=== PATIENT | male | born 1955 | race Caucasian/White ===

== ENCOUNTER 2024-01-23 21:09 | Observation (INO) | payer MEDICARE ==
[~2024-01-23] VITALS: Ht 177.8 cm; Wt 70.4 kg
[2024-01-23 21:53] LABS: BASOPHILS # (AUTO) 0.06 K/uL (0.00-0.20); BASOPHILS % (AUTO) 0.6 % (0.0-5.0); EOSINOPHILS # (AUTO) 0.36 K/uL (0.00-0.70); EOSINOPHILS % (AUTO) 3.8 % (0.0-8.0); HEMATOCRIT 30.8 % (42-54); IMMATURE GRANULOCYTE ABSOLUTE 0.03 K/uL (0-1); LYMPHOCYTES # (AUTO) 2.6 K/uL (1.0-4.8); MEAN CORPUSCULAR HEMOGLOBIN 24.9 pg (27.0-33.0); MEAN CORPUSCULAR HGB CONC 31.8 g/dL (32.0-36.0); MEAN CORPUSCULAR VOLUME 78.4 fL (79-99); MONOCYTES # (AUTO) 0.6 K/uL (0.1-1.0); MONOCYTES % (AUTO) 5.7 % (3.0-13.0); NEUTROPHILS % (AUTO) 62.6 % (40.0-77.0); PLATELET COUNT (AUTO) 353 K/uL (130-400); RED BLOOD CELL COUNT(AUTO) 3.93 MIL/uL (4.50-6.20); RED CELL DISTRIBUTION WIDTH 16.6 % (11.0-15.5); WHITE BLOOD COUNT (AUTO) 9.6 K/uL (4.8-10.8)
[2024-01-23] MEDS ORDERED: ZINC220C6 PO (22:01)
[2024-01-23] MEDS ORDERED: LACT10SO5 PO (22:01)
[2024-01-23] MEDS ORDERED: POLY17PO4 PO (22:01)
[2024-01-23] MEDS ORDERED: INSU100V12 SQ (22:01)
[2024-01-23] MEDS ORDERED: PANT40TA54 PO (22:01)
[2024-01-23] MEDS ORDERED: ACET325T51 PO (22:01)
[2024-01-23] MEDS ORDERED: ASCO500T10 PO (22:01)
[2024-01-23] MEDS ORDERED: LEVE250T PO (22:01)
[2024-01-23] MEDS ORDERED: CALC-916 PO (22:01)
[2024-01-23] MEDS ORDERED: ICOS1CAP PO (22:01)
[2024-01-23] MEDS ORDERED: FENO160T16 PO (22:01)
[2024-01-23] MEDS ORDERED: GABA300C PO (22:01)
[2024-01-23] MEDS ORDERED: FOLI1 PO (22:01)
[2024-01-23 22:02] LABS: CREATININE 0.8 mg/dL (0.5-1.3); POTASSIUM 3.8 mmol/L (3.5-5.1)
[2024-01-23 22:34] LABS: PLATELET MORPHOLOGY LARGE PLTS PRESENT
[2024-01-23] MEDS: 0.9%NACL 1000ML 1,000 ML IV SCH (23:52)
[2024-01-23] MEDS: KETOROLAC 15MG/ML VIAL (15MG/ML) IV PRN (23:52)
[2024-01-23] MEDS: DiphenhydrAMINE HCL 50 MG/ML VIAL IV PRN (23:55)
[2024-01-24] VITALS (22 sets, daily range): BP systolic 100–136; BP diastolic 67–87; PULSE 64–94; RESP 14–19; O2SAT 97
[2024-01-24] MEDS ORDERED: MAG/ALUM/SIMETH 30 ML UDCUP PO PRN
[2024-01-24] MEDS ORDERED: POTASSIUM CHLORIDE 10MEQ/100ML 100 ML IV PRN
[2024-01-24] MEDS ORDERED: POTASSIUM CHLORIDE 10% ELIXIR 20 MEQ/15 ML UDCUP PO PRN
[2024-01-24] MEDS ORDERED: LACTULOSE 20 GM/30 ML UDCUP PO PRN
[2024-01-24] MEDS ORDERED: ONDANSETRON 4MG INJ IV PRN
[2024-01-24] MEDS ORDERED: DEXTROSE 50%-WATER 50 ML DISP.SYRIN IV PRN
[2024-01-24] MEDS ORDERED: NITROGLYCERIN 0.4 MG SL TAB SL PRN
[2024-01-24] MEDS ORDERED: KCL 20 MEQ ERTAB PO PRN
[2024-01-24] MEDS ORDERED: GUAIFENESIN-DM 200/20 MG 10 ML PO PRN
[2024-01-24] MEDS ORDERED: GLUCAGON 1MG KIT 1 MG ML IM PRN
[2024-01-24] MEDS ORDERED: ZOLPIDEM TARTRATE 5 MG TAB PO PRN
[2024-01-24] MEDS ORDERED: HYDRALAZINE 20MG/ML VIAL IV PRN
[2024-01-24] MEDS ORDERED: FAMOTIDINE 20MG VIAL IV PRN
[2024-01-24] MEDS ORDERED: MAGNESIUM 2GM PREMIX 50ML 50 ML IV PRN
[2024-01-24] MEDS ORDERED: NON-FORMULARY MEDICATION 1 EACH (Lactulose 20 GM) PO PRN (02:30)
[2024-01-24] MEDS ORDERED: ACETAMINOPHEN 325 MG TAB PO PRN ×4 (02:30)
[2024-01-24] MEDS ORDERED: POTASSIUM CHLORIDE 10MEQ SR TAB PO PRN (06:30)
[2024-01-24] MEDS: INSULIN HUMULIN R 100 UNIT/ML 3ML SQ SCH (06:38)
[2024-01-24 06:53] LABS: BASOPHILS # (AUTO) 0.05 K/uL (0.00-0.20); BASOPHILS % (AUTO) 0.5 % (0.0-5.0); EOSINOPHILS # (AUTO) 0.46 K/uL (0.00-0.70); EOSINOPHILS % (AUTO) 4.7 % (0.0-8.0); HEMATOCRIT 30.9 % (42-54); IMMATURE GRANULOCYTE ABSOLUTE 0.04 K/uL (0-1); LYMPHOCYTES # (AUTO) 2.3 K/uL (1.0-4.8); LYMPHOCYTES % (AUTO) 23.7 % (21.0-51.0); MEAN CORPUSCULAR HEMOGLOBIN 25.4 pg (27.0-33.0); MEAN CORPUSCULAR VOLUME 79.4 fL (79-99); MONOCYTES # (AUTO) 0.5 K/uL (0.1-1.0); MONOCYTES % (AUTO) 5.6 % (3.0-13.0); NEUTROPHILS # (AUTO) 6.3 K/uL (1.8-7.7); NEUTROPHILS % (AUTO) 65.1 % (40.0-77.0); PLATELET COUNT (AUTO) 342 K/uL (130-400); RED BLOOD CELL COUNT(AUTO) 3.89 MIL/uL (4.50-6.20); RED CELL DISTRIBUTION WIDTH 16.7 % (11.0-15.5); WHITE BLOOD COUNT (AUTO) 9.7 K/uL (4.8-10.8)
[2024-01-24 07:04] LABS: HEMOGLOBIN A1C 9.9 % (4.0-6.0)
[2024-01-24 07:28] LABS: BILIRUBIN,DIRECT 0.2 mg/dL (0.0-0.3); BILIRUBIN,TOTAL 0.7 mg/dL (0.2-1.0); CREATININE 0.8 mg/dL (0.5-1.3); MAGNESIUM 1.9 mg/dL (1.80-2.40); POTASSIUM 3.7 mmol/L (3.5-5.1); TOTAL PROTEIN, SERUM 7.8 g/dL (6.0-8.3)
[2024-01-24] MEDS: FOLIC ACID 1 MG TABLET PO SCH (09:00)
[2024-01-24] MEDS: HEPARIN 5,000 UNIT VIAL SQ SCH (09:00)
[2024-01-24] MEDS: PANTOPRAZOLE 40 MG TAB DR PO SCH (09:00)
[2024-01-24] MEDS: GABAPENTIN 300 MG CAPSULE PO SCH (09:00)
[2024-01-24] MEDS: ASCORBIC ACID 500 MG TAB PO SCH (09:00)
[2024-01-24] MEDS ORDERED: FAMOTIDINE 20MG VIAL IV SCH (09:00)
[2024-01-24] MEDS: (Icosapent Ethyl (Vascepa) 1 GM) PO SCH (09:00)
[2024-01-24] MEDS: (Fenofibrate 160 MG) PO SCH (09:00)
[2024-01-24] MEDS: LEVETIRACETAM 250 MG TABLET PO SCH (09:00)
[2024-01-24] MEDS: ZINC SULFATE 220 CAPSULE PO SCH (09:00)
[2024-01-24] MEDS: INSULIN GLARGINE 100 UNITS/ML 10 ML VIAL SQ SCH (09:00)
[2024-01-24] MEDS: CALCIUM CARBONATE 600 MG PO SCH (09:00)
[2024-01-24] MEDS: POLYETHYLENE GLYCOL 3350 17 GM POWD.PACK PO SCH (09:00)
[2024-01-24 09:28] LABS: INR 1.04 (0.85-1.15); PROTHROMBIN TIME 11.2 SEC (9.6-11.6)
[2024-01-24] MEDS ORDERED: NEOSTIGMINE METHYLSULFATE 1MG/ML IV ONE (09:48)
[2024-01-24] MEDS ORDERED: LIDOCAINE PF 100MG/5ML (2%) SYRINGE 5ML ONE (09:48)
[2024-01-24] MEDS ORDERED: SUCCINYLCHOLINE CHLORIDE 20 MG/ML 10 ML VIAL ONE (09:48)
[2024-01-24] MEDS ORDERED: GLYCOPYRROLATE 0.2 MG/ML 5 ML VIAL ONE (09:48)
[2024-01-24] MEDS ORDERED: PROPOFOL 10 MG/ML 20ML VIAL IV ONE (09:48)
[2024-01-24] MEDS ORDERED: DEXAMETHASONE SOD PHOSPHATE 10MG/ML 1ML VIAL ONE (09:48)
[2024-01-24] MEDS ORDERED: ONDANSETRON 4MG INJ ONE (09:48)
[2024-01-24] MEDS ORDERED: MIDAZOLAM HCL 1 MG/ML 2ML VIAL ONE (09:48)
[2024-01-24] MEDS ORDERED: ROCURONIUM BROMIDE 10MG/1ML 5ML VL ONE (09:49)
[2024-01-24] MEDS ORDERED: FENTANYL CITRATE PF 50 MCG/1 ML 2ML VIAL ONE (09:49)
[2024-01-24] MEDS ORDERED: KETAMINE 50MG/ML SYRINGE 50 MG/ML DISP.SYRIN ONE (11:11)
[2024-01-24] MEDS: ZOSYN 3.375GM +NS 50ML IVPB ONE (11:40)
[2024-01-24] MEDS: ZOSYN 3.375GM+NS 50ML 50 ML ONE (13:02)
== END 2024-01-24 18:00 ==
LOC: EDH 21:09 → EDHIP 23:35 → 3CH 01-24 00:59
PROVIDERS: ADMIT Hospitalist; ATTEND Hospitalist
DX: T83.020A Displacement of cystostomy catheter, initial encounter (principal); E11.649 Type 2 diabetes mellitus with hypoglycemia without coma; E11.40 Type 2 diabetes mellitus with diabetic neuropathy, unspecified; K70.30 Alcoholic cirrhosis of liver without ascites; M81.0 Age-related osteoporosis without current pathological fracture; K21.9 Gastro-esophageal reflux disease without esophagitis; N35.912 Unspecified bulbous urethral stricture, male; N13.30 Unspecified hydronephrosis; N31.9 Neuromuscular dysfunction of bladder, unspecified; E78.00 Pure hypercholesterolemia, unspecified; F41.9 Anxiety disorder, unspecified; E66.01 Morbid (severe) obesity due to excess calories; K56.600 Partial intestinal obstruction, unspecified as to cause; D64.9 Anemia, unspecified; N21.0 Calculus in bladder; E44.0 Moderate protein-calorie malnutrition; M62.838 Other muscle spasm; I10 Essential (primary) hypertension; Z86.73 Personal history of transient ischemic attack (TIA), and cerebral infarction without residual deficits; Z68.22 Body mass index [BMI] 22.0-22.9, adult; Z93.3 Colostomy status; Z88.5 Allergy status to narcotic agent; Z74.01 Bed confinement status; Z79.4 Long term (current) use of insulin; Y73.8 Miscellaneous gastroenterology and urology devices associated with adverse incidents, not elsewhere classified
CPT/HCPCS: 96374; 96375; 80048 ×2; 85025 ×2; 36415 ×2; 71045; 99291; 52281; 93005; 51102; 83036; 82550; 80076; 83735; 83880; 85610; 82948 ×3; 83605; 84145; G0378 ×16; J1200; J7030; J1885; J1815 ×2; A5113; J7120; C1769; A4355; A4354; C2627; J3010; J1100; J0330; J3490 ×3; J2001; J2250; J2704; J2405; J2710; J2543 ×2; J1644; A4649; A4223; A4222; A4216

== ENCOUNTER 2024-06-15 18:11 | Emergency (ER) | payer OTHER, MEDICARE ==
[~2024-06-15] VITALS: Ht 167.6 cm; Wt 80.3 kg
[~2024-06-15 18:11] MED LIST: ACET-3859 PO; ASCO500T10 PO; CALC-916 PO; FENO160T16 PO; FOLI1 PO; GABA300C PO; ICOS1CAP PO; INSU100V12 SQ; LACT-441 PO; LEVE250T PO; PANT40TA54 PO; POLY17PO4 PO; ZINC220C6 PO
--- NOTE | 2024-06-15 18:27 | ERN ---
General Chief Complaint: Urinary Catheter Problems Stated Complaint: SUPRA PUBIC CATH DISLODGEMENT Time Seen by MD: 18:13 Time Seen by Midlevel: 18:13 Source: patient, EMS History of Present Illness Initial Comments Patient is a 69-year-old male being brought in by EMS from [facility] for evaluation of a suprapubic catheter. According to [facility] staff, patient accidentally bent and broke off part of the suprapubic catheter. The [facility] staff was concerned that the suprapubic catheter was gone to retract into the bladder so they decided to put a clamp on it. No other concerns reported at this time. Allergies: Coded Allergies: codeine (Unverified Allergy, Unknown, 01/23/24) Home Meds Reported Medications Acetaminophen (Acetaminophen) 325 Mg Tablet, 650 MG PO Q4HPRN PRN for FEVER, TAB 01/23/24 Lactulose (Lactulose) 10 Gram/15 Ml Solution, 20 GM PO BID PRN for CONSTIPATION, ML 01/23/24 Pantoprazole Sodium (Pantoprazole Sodium) 40 Mg Tablet.dr, 40 MG PO DAILY, TAB 01/23/24 Calcium Carbonate (Calcium Carbonate) 600 Mg Calcium (1500 Mg) Tablet, 600 MG PO DAILY, TAB 01/23/24 Fenofibrate (Fenofibrate) 160 Mg Tablet, 160 MG PO DAILY, TAB 01/23/24 Levetiracetam (Keppra) 250 Mg Tablet, 250 MG PO BID, TAB 01/23/24 Icosapent Ethyl (Vascepa) 1 Gram Capsule, 1 GM PO BID, CAP 01/23/24 Ascorbic Acid (Ascorbic Acid) 500 Mg Tablet, 500 MG PO DAILY, TAB 01/23/24 Folic Acid (Folvite) 1 Mg Tab, 1 MG PO DAILY, TAB 01/23/24 Zinc Sulfate (Zinc Sulfate 220 Cap) 50 Mg Zinc (220 Mg) Capsule, 220 MG PO DAILY , CAP 01/23/24 Insulin Detemir (Levemir) 100 Unit/Ml Vial, 45 UNIT SQ DAILY, VIAL 01/23/24 Polyethylene Glycol 3350 (Miralax) 17 Gram Powd.pack, 17 GM PO DAILY 01/23/24 Gabapentin (Neurontin) 300 Mg Capsule, 300 MG PO TID, CAP 01/23/24 Past Medical History Past Medical History: Anxiety, CVA, Diabetes-Type II, GERD, High Cholesterol, Hypertension, Kidney Stone, Liver Disease, MRSA Medical History Other: COLOSTOMY, SUPRAPUBIC CATHETER,PRESSURE ULCERS Past Surgical History: Other Surgical History Other: Expiratory laparotomy 01/18/2024, cystoscopy Family History Family History: Negative Social History Social History: Negative ROS Dictation CONSTITUTIONAL: Negative except for HPI HEAD/FACE: Negative except for HPI EENT: Negative except for HPI RESPIRATORY: Negative except for HPI GASTROINTESTINAL/ABDOMINAL: Negative except for HPI GENITOURINARY: Negative except for HPI MUSCULOSKELETAL: Negative except for HPI INTEGUMENTARY: Negative except for HPI NEUROLOGICAL/PSYCH: Negative except for HPI HEMATOLOGIC/LYMPHATIC: Negative except for HPI All Systems Negative, Except as noted above. 13 point review of systems assessed and all negative except for above. Physical Exam Physical Exam Dictation PHYSICAL EXAM: GENERAL: alert,, awake oriented x 3 HEENT: EOMI, Sclera non icteric, moist mucosa NECK: Supple, no JVD, trachea midline LUNGS: Clear breath sounds bilaterally. No wheezes HEART: Regular rate and rhythm. Normal S1 and S2, without murmurs ABD: Abdomen soft, nontender. Bowel sounds present EXT: No clubbing or cyanosis, NEURO: Neurologically at baseline, alert, follows simple commands, answers simple questions Results Laboratory and Microbiology Lab and Micro Result Laboratory Tests Test 06/15/24 19:11 06/15/24 20:08 White Blood Count 11.3 K/uL (4.8-10.8) H Red Blood Count 5.15 MIL/uL (4.50-6.20) Hemoglobin 13.0 g/dL (14.0-18.0) L Hematocrit 41.2 % (42-54) L Mean Corpuscular Volume 80.0 fL (79-99) Mean Corpuscular Hemoglobin 25.2 pg (27.0-33.0) L Mean Corpuscular Hemoglobin Concent 31.6 g/dL (32.0-36.0) L Red Cell Distribution Width 19.2 % (11.0-15.5) H Platelet Count 320 K/uL (130-400) Mean Platelet Volume 10.2 fL (7.5-10.5) Immature Granulocyte % (Auto) 0.4 % (0-1) Neutrophils (%) (Auto) 57.6 % (40.0-77.0) Lymphocytes (%) (Auto) 34.0 % (21.0-51.0) Monocytes (%) (Auto) 6.0 % (3.0-13.0) Eosinophils (%) (Auto) 1.2 % (0.0-8.0) Basophils (%) (Auto) 0.8 % (0.0-5.0) Neutrophils # (Auto) 6.5 K/uL (1.8-7.7) Lymphocytes # (Auto) 3.8 K/uL (1.0-4.8) Monocytes # (Auto) 0.7 K/uL (0.1-1.0) Eosinophils # (Auto) 0.14 K/uL (0.00-0.70) Basophils # (Auto) 0.09 K/uL (0.00-0.20) Absolute Immature Granulocyte (auto 0.05 K/uL (0-1) Nucleated Red Blood Cells 0.0 % (0.0-0.19) Red Blood Cell Morphology See comments Sodium Level 134 mmol/L (136-145) L Potassium Level 3.8 mmol/L (3.5-5.1) Chloride Level 103 mmol/L (101-111) Carbon Dioxide Level 26 mmol/L (21-32) Blood Urea Nitrogen 31 mg/dL (7-18) H Creatinine 0.9 mg/dL (0.5-1.3) Glomerular Filtration Rate Calc 94 mL/min (>90) Random Glucose 126 mg/dL (70-105) H Total Calcium 9.6 mg/dL (8.5-10.1) Urine Color LIGHT-ORANGE (YELLOW) Urine Appearance CLOUDY (CLEAR) H Urine pH 7.5 (5.0-8.0) Urine Specific Epps 1.013 (1.001-1.031) Urine Protein 100 mg/dL (NEGATIVE) H Urine Glucose (UA) NEGATIVE mg/dL (NEGATIVE) Urine Ketones NEGATIVE mg/dL (NEGATIVE) Urine Occult Blood LARGE (NEGATIVE) H Urine Nitrate NEGATIVE (NEGATIVE) Urine Bilirubin NEGATIVE mg/dL (NEGATIVE) Urine Urobilinogen 0.2 mg/dL (0.2-1.0) Urine Leukocyte Esterase 500 Jozef/uL (NEGATIVE) H Urine RBC TNTC /HPF (0-1) H Urine WBC TNTC /HPF (0-1) H Urine WBC Clumps (Auto) FEW /HPF (0-1) Urine Squamous Epithelial Cells RARE /HPF (0-2) Urine Other Crystals (Auto) 8 /HPF (None Seen) Urine Bacteria RARE /HPF (None Seen) Labs Reviewed?: Yes MDM MDM: Patient is a 69-year-old male being brought in by EMS from [facility] for evaluation of a suprapubic catheter. According to [facility]pc staff, patient accidentally bent and broke off part of the suprapubic catheter. The [facility] staff was concerned that the suprapubic catheter was gone to retract into the bladder so they decided to put a clamp on it. No other concerns reported at this time. On physical examination patient has what appears to be a suprapubic Gayle catheter in place. It appears the suprapubic catheter was cut in half. An ultrasound was obtained which does reveal the remainder of the suprapubic catheter in place. The suprapubic catheter was removed gently with no complications. An18 Yoruba Gayle was placed with no complications. An ultrasound was obtained which confirms placement of the suprapubic Gayle catheter. There was over 500 cc of urine return. No gross hematuria noted. Patient will be discharged back to [facility] Differential diagnosis: Gayle catheter evaluation, There are no social concerns with this patient. Prescription drug management Prescriptions will include: Medical management and examination interpretation discussions were had by me with other qualified healthcare professionals as indicated for the patient's care. ED Course Orders Procedure Category Date Status Time Us Pelvic Non-Ob US 06/15/24 Taken Limited 18:53 Cbc With Differential LAB 06/15/24 Complete 18:54 Basic Metabolic Panel LAB 06/15/24 Complete 18:54 Urinalysis Profile LAB 06/15/24 Complete 20:11 Aerobic Culture RIC 06/15/24 In Process 20:11 Anaerobic Culture RIC 06/15/24 In Process 20:11 Us Pelvic Non-Ob US 06/15/24 Taken Limited 20:22 Culture Urine RIC 06/15/24 In Process 21:15 Nurse Driven Gayle DAMIEN 06/15/24 Complete Removal Pro 21:16 Vital Signs Date Time Temp Pulse Resp B/P (MAP) Pulse Ox O2 Delivery O2 Flow Rate FiO2 06/15/24 21:17 98.4 70 20 121/66 98 Room Air* 0 21 06/15/24 19:31 98.8 74 20 116/57 98 Room Air* 0 21 06/15/24 19:24 98.8 74 20 130/88 100 Room Air 0 06/15/24 18:29 98.8 60 20 138/88 98 Room Air* 0 21 DX & DISP Disposition: Discharge Departure Impression: Primary Impression: Suprapubic catheter dysfunction Condition: Stable Additional Instructions: Suprapubic catheter was replaced with an 18 Yoruba Gayle catheter. Placement was confirmed with ultrasound. Follow up outpatient with Urology. Return to the ER for any new or worsening symptoms. Referrals: WILLIAN CRAVEN Jr., MD (PCP) Time of Disposition: 20:46 I have reviewed the case, and I agree with, Diagnosis and Plan I performed the substantive portion of the visit. I have reviewed and personally made and approve the management plan that is documented in the note by myself or the MICKIE. I acknowledge for responsibility for the patient's management plan. MARTHA MASSEY Jun 15, 2024 18:27
[2024-06-15 19:24] LABS: BASOPHILS # (AUTO) 0.09 K/uL (0.00-0.20); BASOPHILS % (AUTO) 0.8 % (0.0-5.0); EOSINOPHILS # (AUTO) 0.14 K/uL (0.00-0.70); EOSINOPHILS % (AUTO) 1.2 % (0.0-8.0); HEMATOCRIT 41.2 % (42-54); IMMATURE GRANULOCYTE ABSOLUTE 0.05 K/uL (0-1); LYMPHOCYTES # (AUTO) 3.8 K/uL (1.0-4.8); MEAN CORPUSCULAR HEMOGLOBIN 25.2 pg (27.0-33.0); MEAN CORPUSCULAR HGB CONC 31.6 g/dL (32.0-36.0); MONOCYTES # (AUTO) 0.7 K/uL (0.1-1.0); NEUTROPHILS # (AUTO) 6.5 K/uL (1.8-7.7); NEUTROPHILS % (AUTO) 57.6 % (40.0-77.0); PLATELET COUNT (AUTO) 320 K/uL (130-400); RED BLOOD CELL COUNT(AUTO) 5.15 MIL/uL (4.50-6.20); RED CELL DISTRIBUTION WIDTH 19.2 % (11.0-15.5); WHITE BLOOD COUNT (AUTO) 11.3 K/uL (4.8-10.8)
[2024-06-15 19:29] LABS: CREATININE 0.9 mg/dL (0.5-1.3); POTASSIUM 3.8 mmol/L (3.5-5.1)
--- NOTE | 2024-06-15 21:05 | NUR ---
[facility] CONTACTED FOR TRANSFER TO [facility]
[2024-06-15 21:09] LABS: APPEARANCE,URINE CLOUDY (CLEAR); BILIRUBIN,URINE NEGATIVE (NEGATIVE); COLOR,URINE LIGHT-ORANGE (YELLOW); GLUCOSE, URINE (UA) NEGATIVE (NEGATIVE); KETONES,URINE NEGATIVE (NEGATIVE); LEUKOCYTE ESTERASE ,URINE 500 Leu/uL (NEGATIVE); NITRATE,URINE NEGATIVE (NEGATIVE); OCCULT BLOOD,URINE LARGE (NEGATIVE); PH,URINE 7.5 (5.0-8.0); PROTEIN,URINE 100 mg/dL (NEGATIVE); UROBILINOGEN,URINE 0.2 mg/dL (0.2-1.0)
--- NOTE | 2024-06-15 21:14 | NUR ---
SUPRAPUBIC BLAKELY REMOVED BY CARLOS ENRIQUE AND REPLACED WITH 16FR 10CC BLAKELY CATHETER, PATIENT TOLERATED WELL.
[2024-06-15 21:15] LABS: ADD UA MICROSCOPIC YES
[2024-06-15 21:17] VITALS: BP 121/66; PULSE 70; RESP 20; TEMP 98.5; O2SAT 98
[2024-06-15 21:17] LABS: BACTERIA,URINE RARE /HPF (None Seen); MUCUS,URINE RARE LPF (None Seen); RBC,URINE TNTC /HPF (0-1); SQUAMOUS EPITHELIAL CELL,UR RARE /HPF (0-2); UNCLASSIFIED CRYSTAL 8 /HPF (None Seen); WBC CLUMP FEW /HPF (0-1); WBC,URINE TNTC /HPF (0-1)
--- NOTE | 2024-06-15 21:21 | NUR ---
[facility] ARRIVED FOR PATIENT, PATIENT STABLE AT THIS TIME
--- NOTE | 2024-06-15 22:27 | HMCIMG ---
US PELVIC NON-OB LIMITED HISTORY: Suprapubic catheter COMPARISON: None TECHNIQUE: Bladder ultrasound study was performed. FINDINGS: Suprapubic catheter is seen with distal tip in the bladder. Bladder volume is 153 cc. IMPRESSION: 1. Findings as described above.
--- NOTE | 2024-06-16 08:18 | HMCIMG ---
US PELVIC NON-OB LIMITED REASON: BLAKELY PLACEMENT COMPARISON: None TECHNIQUE: Limited pelvic sonogram was performed to evaluate Blakely catheter position. FINDINGS: There is a Blakely catheter present within a nondistended urinary bladder. Exam appears otherwise unremarkable. IMPRESSION: 1. Blakely catheter present in the urinary bladder.
--- NOTE | 2024-06-17 10:47 | NUR ---
PRESCRIPTION CALLED INTO [facility] IN [place]: BACTRIM DS BID FOR [address] WARNER; RELATED TO POSITIVE URINE CULTURE: E COLI. SPOKE WITH NURSE [facility] IN [place] REGARDING THE PATIENT AND PRESCRIPTION ORDER.
== END 2024-06-15 21:22 ==
LOC: EDH 18:11
DX: T83.010A Breakdown (mechanical) of cystostomy catheter, initial encounter (principal); E11.9 Type 2 diabetes mellitus without complications; E78.00 Pure hypercholesterolemia, unspecified; I10 Essential (primary) hypertension; K21.9 Gastro-esophageal reflux disease without esophagitis; Z79.4 Long term (current) use of insulin; Z79.899 Other long term (current) drug therapy; Z86.73 Personal history of transient ischemic attack (TIA), and cerebral infarction without residual deficits; Z87.442 Personal history of urinary calculi; Z88.5 Allergy status to narcotic agent; Z93.3 Colostomy status; Z98.890 Other specified postprocedural states; Y84.6 Urinary catheterization as the cause of abnormal reaction of the patient, or of later complication, without mention of misadventure at the time of the procedure
CPT/HCPCS: 36415; 51705; 76857; 80048; 81001; 85025; 87070; 87076; 87086; 87186; 99284